=== PATIENT | male | born 1955 | race Hispanic/Latino ===

== ENCOUNTER 2022-06-16 05:48 | Inpatient (IN) | payer MEDICARE ==
[2022-06-12 14:19] VITALS: BMI 38.1
[2022-06-16] MEDS ORDERED: Levofloxacin 500 mg/D5W 100 ml Premix Bag ONE (07:10)
[2022-06-16] MEDS ORDERED: Dexmedetomidine 200 MCG/2 ML VIAL ONE (07:17)
[2022-06-16] MEDS ORDERED: Fentanyl 250 MCG/5 ML VIAL ONE (07:17)
[2022-06-16] MEDS ORDERED: B & O PR PRN (07:27)
[2022-06-16] MEDS ORDERED: Lidocaine 1% PF 5 ML VIAL ONE (07:33)
[2022-06-16] MEDS ORDERED: ePHEDrine 50 MG/ML VIAL ONE (07:33)
[2022-06-16] MEDS ORDERED: Ondansetron PF 4 MG/2 ML Vial ONE (07:33)
[2022-06-16] MEDS ORDERED: Dexamethasone 20 MG/5 ML VIAL ONE (07:33)
[2022-06-16] MEDS ORDERED: PROPOFOL 200 MG/20 ML VIAL ONE (07:33)
[2022-06-16] MEDS ORDERED: Promethazine HCl 25 MG/ML VIAL IM PRN (08:18)
[2022-06-16] MEDS ORDERED: Ondansetron HCl/PF 4 MG/2 ML Vial IVP PRN (08:18)
[2022-06-16] MEDS: D5 1/2 NS w/20 mEq KCL 1,000 ML IV SCH ×2 (11:01→21:33)
[2022-06-16] MEDS: Lisinopril/Hydrochlorothiazide 10 mg/12.5 mg Tablet PO SCH (11:03)
[2022-06-16] MEDS: Docusate 100 MG CAP PO SCH ×2 (11:03→21:32)
[2022-06-16] MEDS: Loratadine 10 MG TAB PO SCH (11:04)
[2022-06-16] MEDS: Acetaminophen 325 MG TAB PO PRN (16:15)
[2022-06-17] MEDS: Acetaminophen 325 MG TAB PO PRN (05:27)
[2022-06-17] MEDS: D5 1/2 NS w/20 mEq KCL 1,000 ML IV SCH (05:34)
[2022-06-17] MEDS: Lisinopril/Hydrochlorothiazide 10 mg/12.5 mg Tablet PO SCH (08:23)
[2022-06-17] MEDS: Docusate 100 MG CAP PO SCH ×2 (08:23→20:12)
[2022-06-17] MEDS: Loratadine 10 MG TAB PO SCH (08:23)
[2022-06-18] MEDS: Lisinopril/Hydrochlorothiazide 10 mg/12.5 mg Tablet PO SCH (09:31)
[2022-06-18] MEDS: Loratadine 10 MG TAB PO SCH (09:32)
[2022-06-18] MEDS: Docusate 100 MG CAP PO SCH (09:32)
[2022-06-18 12:38] VITALS: BP 125/72; TEMP 97.5
[2022-06-18] MEDS: Acetaminophen 325 MG TAB PO PRN (14:43)
== END 2022-06-18 15:00 | disposition home or self-care (01) | DRG 713 ==
LOC: SDC 05:48 → SURG A 07:24
PROVIDERS: ADMIT Urology; ATTEND Urology
PROC: 0VB07ZZ Excision of Prostate, Via Natural or Artificial Opening (ICD-10-PCS; principal; 2022-06-16)
DX: C61 Malignant neoplasm of prostate (principal); N13.8 Other obstructive and reflux uropathy; Z20.822 Contact with and (suspected) exposure to COVID-19; N40.1 Benign prostatic hyperplasia with lower urinary tract symptoms; E78.00 Pure hypercholesterolemia, unspecified; I10 Essential (primary) hypertension; K21.9 Gastro-esophageal reflux disease without esophagitis; Z79.899 Other long term (current) drug therapy
CPT/HCPCS: 88305; J1100; J1956; J2405; J2704; J3010; J3480; J3490; U0003; U0005